=== PATIENT | male | born 1955 | race Caucasian/White ===

== ENCOUNTER 2016-12-25 22:52 | Emergency (ER) | payer BC, OTHER ==
[2016-12-25 23:13] VITALS: BP 170/89
--- NOTE | 2016-12-26 00:04 | EDM.PDOC ---
[id number] 4d ILLNESS Time Seen by Provider: 12/25/16 23:10 Source of Information: Reports: Patient, Family History Limitations: Reports: No limitations - History of Present Illness INITIAL COMMENTS - FREE TEXT/NARRATIVE: 61-year-old male in tonight because of concern over his blood pressure. His blood pressure has always been good earlier this spring when he went to the dentist it was 140/90 which concerned him. He discussed this with his regular doctor who encouraged him to take his blood pressure 2-3 times daily which has been doing for the past 1 to 2 weeks and continues to have readings around 140 systolic. Tonight when he went to bed he felt his skin was "crawling", he felt mildly diaphoretic and uncomfortable so took his blood pressure and his systolic was 170 so he came in. He now feels fine he had no chest pain shortness of breath nausea or vomiting. He is avoiding salt. He's had no weight gain. He is a nonsmoker. Onset: unknown/unsure Severity: mild Associated Symptoms: Denies: cough, fever/chills, headaches, loss of appetite, malaise, nausea/vomiting, shortness of breath - Related Data Allergies Allergy/AdvReac Type Severity Reaction Status Date / Time Penicillins Allergy Rash Verified 07/05/13 12:56 Home Meds: Home Meds Fluticasone Propionate [Fluticasone Propionate] 1 spray NS ASDIRECTED 12/25/16 [ History] Ranitidine [Zantac] 75 mg PO DAILY 12/25/16 [History] Past Medical History - Past Health History Medical/Surgical History: Denies Medical/Surgical History Social & Family History - Tobacco Use Smoking Status *Q: Never Smoker Second Hand Smoke Exposure: No - Caffeine Use Caffeine Use: Reports: Coffee - Alcohol Use Days Per Week of Alcohol Use: 0 - Recreational Drug Use Recreational Drug Use: No ED ROS GENERAL - Review of Systems Review Of Systems: See Below Constitutional: Denies: fever, chills HEENT: Reports: No symptoms Respiratory: Denies: Shortness of Breath Cardiovascular: Denies: Chest pain GI/Abdominal: Denies: Abdominal pain Skin: Reports: no symptoms Neurological: Reports: No Symptoms Psychiatric: Reports: No symptoms ED EXAM, GENERAL - Physical Exam Exam: See Below Exam Limited By: No limitations General Appearance: alert, no apparent distress Eye Exam: bilateral eye: normal inspection Respiratory/Chest: no respiratory distress, lungs clear Cardiovascular: regular rate, rhythm GI/Abdominal: soft, non tender Extremities: normal inspection. No: pedal edema Neurological: alert, oriented Psychiatric: normal affect, normal mood Course - Vital Signs Last Recorded V/S: Last Vital Signs Temp 96.8 F 12/25/16 23:13 Pulse 73 12/25/16 23:13 Resp 16 12/25/16 23:13 BP 170/89 H 12/25/16 23:13 Pulse Ox 97 12/25/16 23:13 - Orders/Labs/Meds Labs: Laboratory Tests 12/25/16 12/25/16 12/26/16 Range/Units 23:40 23:40 00:18 WBC 8.9 (4.5-11.0) K/uL RBC 5.04 (4.30-5.90) M/uL Hgb 14.9 (12.0-15.0) g/dL Hct 42.4 (40.0-54.0) % MCV 84 (80-98) fL MCH 30 (27-31) pg MCHC 35 (32-36) % Plt Count 254 (150-400) K/uL Neut % (Auto) 49 (36-66) % Lymph % (Auto) 32 (24-44) % [facility] % (Auto) 13 H (2-6) % Eos % (Auto) 5 H (2-4) % Baso % (Auto) 1 (0-1) % Sodium 142 (140-148) mmol/L Potassium 3.6 (3.6-5.2) mmol/L Chloride 105 (100-108) mmol/L Carbon Dioxide 28 (21-32) mmol/L Anion Gap 8.8 (5.0-14.0) mmol/L BUN 16 (7-18) mg/dL Creatinine 1.2 (0.8-1.3) mg/dL Est Cr Clr Drug Dosing 64.13 mL/min Estimated GFR (MDRD) > 60 (>60) Glucose 101 (74-106) mg/dL Calcium 8.2 L (8.5-10.1) mg/dL Total Bilirubin 0.4 (0.2-1.0) mg/dL AST 19 (15-37) U/L ALT 33 (12-78) U/L Alkaline Phosphatase 86 (46-116) U/L Total Protein 6.9 (6.4-8.2) g/dL Albumin 3.7 (3.4-5.0) g/dL Globulin 3.2 (2.3-3.5) g/dL Albumin/Globulin Ratio 1.2 (1.2-2.2) Urine Color Yellow Urine Appearance Clear Urine pH 6.5 (4.5-8.0) Ur Specific Renick 1.020 (1.008-1.030) Urine Protein Negative (NEGATIVE) mg/dL Urine Glucose (UA) Normal (NEGATIVE) mg/dL Urine Ketones Negative (NEGATIVE) mg/dL Urine Occult Blood Negative (NEGATIVE) Urine Nitrite Negative (NEGAITVE) Urine Bilirubin Negative (NEGATIVE) Urine Urobilinogen Normal (NORMAL) mg/dL Ur Leukocyte Esterase Negative (NEGATIVE) Urine RBC Not seen (0-5) Urine WBC Not seen (0-5) Ur Epithelial Cells Not seen Amorphous Sediment Moderate Urine Bacteria Not seen Urine Mucus Not seen - Re-Assessments/Exams Free Text/Narrative Re-Assessment/Exam: 12/26/16 00:07 CBC CMP and UA were obtained. 12/26/16 00:43 Potassium was slightly low but all his other labs including his urine were normal. His blood pressure normalized while in the emergency room, discharge level was 150/87. He still may need an antihypertensive, I will let him discuss this with his primary care provider as it is not an urgent need. Departure - Departure Time of Disposition: 00:52 Disposition: Home, Self-Care 01 Condition: good Clinical Impression: Hypertension Qualifiers: Hypertension type: essential hypertension Qualified Code(s): I10 - Essential ( primary) hypertension Instructions: Hypertension Referrals: Gonzalez Ferguson MD [Primary Care Provider] - Forms: ED Department Discharge Care Plan Goals: Continue to avoid extra salt intake. Activity as tolerated and recheck with Dr. Ferguson in the near future to discuss whether a blood pressure medication is necessary.
== END 2016-12-26 00:52 | disposition home or self-care (01) ==
LOC: JP.ED 22:52
DX: I10 Essential (primary) hypertension (principal); Z79.899 Other long term (current) drug therapy; Z88.0 Allergy status to penicillin
CPT/HCPCS: 36415; 80053; 81001; 85025; 99284

== ENCOUNTER 2018-04-18 09:17 | Emergency (ER) | payer BC ==
[2018-04-18 09:30] VITALS: BP 144/95
[2018-04-18] MEDS ORDERED: Diphtheria,Pertussis(Acell),Tetanus Vaccine 0.5 ML SDV IM ONE (09:55)
--- NOTE | 2018-04-18 09:57 | EDM.PDOC ---
ED HPI GENERAL MEDICAL PROBLEM - General Chief Complaint: Bite:Animal, Insect Stated Complaint: DOG BITES Time Seen by Provider: 04/18/18 09:40 Source of Information: Reports: Patient History Limitations: Reports: No Limitations - History of Present Illness INITIAL COMMENTS - FREE TEXT/NARRATIVE: 62-year-old male sustaining several puncture wounds and lacerations from dog bites when a dog came out and attacked his dog while walking [place] a local trail. Onset: Sudden Duration: Hour(s): Left Leg Pain Score (Numeric/FACES): 4 - Related Data Allergies Allergy/AdvReac Type Severity Reaction Status Date / Time Penicillins Allergy Rash Verified 04/18/18 09:30 Home Meds: Home Meds Fluticasone Propionate 1 spray NS ASDIRECTED 12/25/16 [History] Ranitidine [Zantac] 75 mg PO BID 12/25/16 [History] Lisinopril 1 tab PO DAILY 04/18/18 [History] Past Medical History - Past Health History Medical/Surgical History: Denies Medical/Surgical History Cardiovascular History: Reports: Hypertension Musculoskeletal History: Reports: Fracture Dermatologic History: Reports: Eczema - Infectious Disease History Infectious Disease History: Reports: Chicken Pox, Measles, Mumps - Past Surgical History HEENT Surgical History: Reports: LASIK GI Surgical History: Reports: Colonoscopy Social & Family History - Tobacco Use Smoking Status *Q: Never Smoker Second Hand Smoke Exposure: No - Caffeine Use Caffeine Use: Reports: Coffee, Soda - Alcohol Use Days Per Week of Alcohol Use: 7 Number of Drinks Per Day: 2 Total Drinks Per Week: 14 - Recreational Drug Use Recreational Drug Use: No ED ROS GENERAL - Review of Systems Review Of Systems: See Below Constitutional: Denies: Fever Respiratory: Denies: Shortness of Breath Cardiovascular: Denies: Chest Pain GI/Abdominal: Denies: Nausea, Vomiting Psychiatric: Reports: Anxiety (Initially very anxious about the recent attack) ED EXAM, ANIMAL BITE - Physical Exam Exam: See Below Exam Limited By: No Limitations General Appearance: Alert, Anxious Respiratory/Chest: No Respiratory Distress Cardiovascular: Regular Rate, Rhythm Extremities: Other (Patient has several puncture wounds with a superficial laceration 2.5 cm on the right wrist, several puncture wounds and a 2 cm deeper laceration behind the left knee in the popliteal area, and a superficial abrasion and contusion on the right knee) Course - Vital Signs Last Recorded V/S: Last Vital Signs Temp 97.8 F 04/18/18 09:29 Pulse 101 H 04/18/18 09:29 Resp 20 04/18/18 09:29 BP 144/95 H 04/18/18 09:29 Pulse Ox 99 04/18/18 09:29 - Orders/Labs/Meds Orders: Active Orders 24 hr Category Date Time Status Vaccines to be Administered [RC] PER UNIT ROUTINE Care 04/18/18 09:55 Active Meds: Medications Discontinued Medications Generic Name Dose Route Start Last Admin Trade Name Eliel PRN Reason Stop Dose Admin Bacitracin 1 dose 04/18/18 10:23 04/18/18 10:28 Bacitracin Oint 1 Gm TOP 04/18/18 10:24 1 dose ONETIME ONE Administration Diphtheria/Tetanus/Acell Pertussis 0.5 ml 04/18/18 09:55 04/18/18 09:59 Adacel IM 04/18/18 09:56 0.5 ml .ONCE ONE Administration Lidocaine HCl 5 ml 04/18/18 09:55 04/18/18 09:59 Xylocaine-Mpf 1% INJECT 04/18/18 09:56 5 ml ONETIME ONE Administration - Re-Assessments/Exams Free Text/Narrative Re-Assessment/Exam: 04/18/18 10:25 A TDap Booster was given. The wounds were cleaned, the 2 cm laceration behind the left knee was fairly deep exposing adipose tissue, so it was anesthetized with 1% lidocaine, flushed thoroughly with Hibiclens and saline and closed with 3 4-0 Ethilon sutures. The remaining lesions were cleaned, covered with bacitracin and dressed. Sutures can be removed in one week. He was put on clindamycin 150 mg 3 times a day for the next 10 days to cover infection. He can return anytime if worsening or concerns. Departure - Departure Time of Disposition: 10:42 Disposition: Home, Self-Care 01 Condition: Good Clinical Impression: Dog bite of arm Qualifiers: Encounter type: initial encounter Laterality: right Qualified Code(s): S41.151A - Open bite of right upper arm, initial encounter Dog bite of left popliteal region Qualifiers: Encounter type: initial encounter Qualified Code(s): S81.052A - Open bite, left knee, initial encounter - Discharge Information Instructions: Animal Bite Referrals: PCP,None [Primary Care Provider] - Forms: ED Department Discharge Care Plan Goals: Keep wounds clean while healing. Activity as tolerated, and take antibiotic 3 times a day as prescribed. Regular anti-inflammatory such as ibuprofen or naproxen will help. Return sooner if concerns of infection or not healing satisfactorily. - My Orders Last 24 Hours: My Active Orders 04/18/18 09:55 Vaccines to be Administered [RC] PER UNIT ROUTINE - Assessment/Plan Last 24 Hours: My Active Orders 04/18/18 09:55 Vaccines to be Administered [RC] PER UNIT ROUTINE
[2018-04-18] MEDS ORDERED: Bacitracin Oint 1 GM U/D Packet TOP ONE (10:23)
== END 2018-04-18 10:42 | disposition home or self-care (01) ==
LOC: JP.ED 09:17
DX: S81.052A Open bite, left knee, initial encounter (principal); S60.871A Other superficial bite of right wrist, initial encounter; Z23 Encounter for immunization; I10 Essential (primary) hypertension; Z88.0 Allergy status to penicillin; W54.0XXA Bitten by dog, initial encounter
CPT/HCPCS: 12001; 90471; 90715; 99283-25

== ENCOUNTER 2019-04-18 08:14 | Day surgery (SDC) | payer BC ==
[2019-04-18] MEDS ORDERED: Dextrose 5%-Lactated Ringers 1,000 ML IV SCH (08:15)
[2019-04-18] MEDS ORDERED: fentaNYL 100 MCG/2 ML SDV ONE (08:51)
[2019-04-18] MEDS ORDERED: Propofol 200 MG/20 ML SDV ONE (08:51)
[2019-04-18] MEDS ORDERED: Midazolam 1 MG/ML 2 ML SDV ONE (08:51)
[2019-04-18] MEDS ORDERED: Glycopyrrolate 0.2 MG/ML 2 ML SDV IVPUSH ONE (09:30)
[2019-04-18] MEDS ORDERED: Clindamycin Phosphate 900 MG/6 ML SDV ONE (10:49)
[2019-04-18] MEDS ORDERED: Clindamycin Phosphate 900 MG in Sodium Chloride 0.9% 100 ML IV ONE (11:00)
[2019-04-18 12:23] VITALS: BP 134/84; PULSE 77
--- NOTE | 2019-04-20 18:39 | OR ---
DATE OF PROCEDURE: 04/18/2019 PREOPERATIVE DIAGNOSES: 1. Gastroesophageal reflux disease. 2. Indication for screening colonoscopy. POSTOPERATIVE DIAGNOSES: 1. Active gastroesophageal reflux disease with 5 cm hiatal hernia and a polyp at esophagogastric junction. 2. Normal colonoscopic examination. 3. Possible pulmonary aspiration of gastric contents. OPERATIVE PROCEDURES: 1. Esophagogastroduodenoscopy with: a. Biopsies of antrum for CLOtest. b. Biopsies of the distal esophagus for histologic evaluation. c. Polypectomy at the esophagogastric junction by snare technique. 2. Flexible colonoscopy. ANESTHESIA: IV sedation. INDICATIONS FOR PROCEDURE: This is a 63-year-old male presenting for evaluation of gastroesophageal reflux disease, presently is on Zantac 75 mg b.i.d. and is having relatively poor control of his symptoms. Plan is to do upper GI endoscopy with biopsies as indicated. The patient also meets indications for screening colonoscopy. Potential risks of procedure including bleeding and perforation were discussed and the patient wishes to proceed. DETAILS OF PROCEDURE: The patient was taken to the operating room and placed in a left lateral decubitus position. IV sedation was administered, after which the upper GI endoscope was passed orally through the length of esophagus into the stomach with retroflexion view of the fundus, and thereafter, through the pyloric channel and into the junction of the third and fourth portions of the duodenum. Findings included normal hypopharynx, larynx, upper esophageal sphincter, and esophageal body. At the EG junction, there was a 5 cm hiatal hernia. 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 Apart from that, there was no stricturing or other signs of neoplastic change. The remainder of the stomach was unremarkable other than some very mild patchy redness in the antrum, and the duodenum was also normal. At this point, biopsies were taken from the antrum to assess the patient's H. pylori status. Following this, multiple biopsies were taken from the esophagogastric junction and sent for histologic evaluation. Finally, the polyp was encircled at its base with a snare and excised and sent for histologic evaluation as well. No bleeding was noted from the biopsy and polypectomy sites and the procedure then concluded. During the course of the upper endoscopy, the patient had scant, perhaps tablespoon amount of liquids within the stomach. This did come up as there was possibility he had some minor aspiration and was given intraoperative clindamycin and will be sent home with likely a course of clindamycin as well. Attention was then taken to the colonoscopy. An initial digital rectal exam was performed and it was unremarkable. There was no prostatic abnormalities noted. The scope was then eventually passed to the cecum. The prep was fairly good, and there was only a small amount of liquid stool present to that level. No abnormalities were noted, specifically there were no areas of diverticular disease, no polyps or other signs of neoplasia and no areas of colitis. The scope was then withdrawn. The above findings reconfirmed and the procedure then concluded. Plan at this point would be to begin the patient on Protonix 40 mg a day. We will have him for now take this in addition to the Zantac. We will see him back on 04/26/2019 to see how well the symptom control is progressing. Otherwise, we will do the 5-day course of clindamycin. He is instructed that if he develops fever, shortness of breath, or increasing coughing, he should contact us, and otherwise, the next colonoscopy with the absence of personal or family history of colon neoplasia should be in 10 years. Km Childs MD /[id number]
== END 2019-04-18 12:40 | disposition home or self-care (01) ==
LOC: JP.SDS 08:14
PROVIDERS: ATTEND Surgery
DX: Z12.11 Encounter for screening for malignant neoplasm of colon (principal); K21.9 Gastro-esophageal reflux disease without esophagitis; K44.9 Diaphragmatic hernia without obstruction or gangrene; K22.8 Other specified diseases of esophagus; K31.89 Other diseases of stomach and duodenum; I10 Essential (primary) hypertension; Z88.0 Allergy status to penicillin
CPT/HCPCS: 43239; 43251; 45378; 87081; 88305; J2250; J2704; J3010; J3490; J7030; J7042

== ENCOUNTER 2022-09-07 14:44 | Emergency (ER) | payer BC | END 2022-09-07 16:40 | disposition left against medical advice (07) | LOC: JP.ED 14:44 | DX: Z53.21 Procedure and treatment not carried out due to patient leaving prior to being seen by health care provider (principal) ==

== ENCOUNTER 2023-03-03 19:46 | Emergency (ER) | payer MEDICARE, BC | END 2023-03-03 20:34 | disposition left against medical advice (07) | LOC: JP.ED 19:46 | DX: Z53.21 Procedure and treatment not carried out due to patient leaving prior to being seen by health care provider (principal) ==